=== PATIENT | female | born 1960 | race Caucasian/White ===

== ENCOUNTER → 2016-05-30 12:33 | Outpatient (CLI) | payer MEDICARE ==
[2013-04-12 15:16] VITALS: BMI 32.2
[~2016-05-30 12:33] MED LIST: AMITRIPTYLINE150 MG PO; CALTRATE-600600 MG PO; CARAFATE1 G PO; FLEXERIL10 MG; HCTZ25 MG PO; K-DUR20 MEQ PO; KLONOPIN0.5 MG PO; NEXIUM40 MG PO; NORCO 5/325 TAB1 TA1 PO; PRILOSEC20 MG PO; SINGULAIR10 MG; SLOW-MAG 64 MG64 MG PO; XOPENEX HFA15 GM INH; ZOFRAN ODT4 MG/UDTAB OR; ZOLOFT100 MG PO
[2016-05-31 11:18] LABS: IMMUNOGLOBULIN E 9 IU/mL (0-100)
== END | disposition home or self-care (01) ==
LOC: D.RT 12:33
PROVIDERS: Internal Medicine Pulmonary Disease
DX: J45.909 Unspecified asthma, uncomplicated (principal)

== ENCOUNTER → 2016-12-16 16:22 | Outpatient (CLI) | payer MEDICARE ==
[2013-04-12 15:16] VITALS: BMI 32.2
== END | disposition home or self-care (01) ==
LOC: D.CT 16:22
DX: S42.202A Unspecified fracture of upper end of left humerus, initial encounter for closed fracture (principal)

== ENCOUNTER 2017-03-10 08:07 | Outpatient (CLI) | payer MEDICARE ==
--- NOTE | ~2017-03-10 | HEMODYNAMI ---
PATIENT:CAMILA GAMBOA MEDICAL RECORD: [id number] : 56 LOCATION:[facility] ADMISSION DATE: 03/10/17 Generatedon:03/10/201710:46 Patient name: CAMILA GAMBOA Patient #: [id number] SSN: [id number] : 1960 Date of study: 03/10/2017 Page: Of Hemodynamic Procedure Report Patient Data Patient Demographics Procedure consent was obtained First Name: CAMILA Gender: Female Last Name: COOPER : 1960 [facility] Initial: N Age: 56 year(s) Patient #: [id number] Race: SSN: [id number] Additional ID: [id number] Contact details Address: [place] [address] State: [place] City: [place] Zip code: [address] Admission Admission Data Admission Date: 03/10/2017 Admission Time: 8:07 Arrival Date: 03/10/2017 Arrival Time: 10:30 Admit Source: Other Insurance Payor: Medicare Lab Results Lab Result Date: 03/10/2017 Lab Result Time: 0:00 Biochemistry Name Units Result Min Max BUN mg/dl 17 --(---*)-- 7 18 Creatinine mg/dl 0.9 --(-*--)-- 0.6 1.3 CBC Name Units Result Min Max Hemoglobin g/dl 14.2 --(*---)-- 13.5 17.5 Procedure Procedure Types Cath Procedure Diagnostic Procedure LHC LH w/Coronaries PCI Procedure Coronary Stent Initial Miscellaneous Procedures Moderate Sedation up to 30 minutes Procedure Description Procedure Date Procedure Date: 03/10/2017 Procedure Start Time: 10:26 Procedure End Time: 10:41 Procedure Staff Name Function Jude Ma MD Performing Physician Yaz Ray RT Scrub Benita Alonso RT Monitor Valencia Pires RN Nurse Alejandra Fowler RN Nurse Procedure Data Cath Procedure Fluoroscopy Diagnostic fluoroscopy Total fluoroscopy Time: 2.1 time: 2.1 min min Diagnostic fluoroscopy Total fluoroscopy dose: 372 dose: 372 mGy mGy Contrast Material Contrast Material Type Amount (ml) Isovue 300 60 Entry Location Entry Primary Successful Side Size Upsize Upsize Entry Closure Jewell ccessful Closure Location (Fr) 1 (Fr) 2 (Fr) Remarks Device Remarks Radial Right 6 Fr Mechanical artery Short Compression Estimated blood loss: 5 ml Diagnostic catheters Device Type Used For End Catheter Placement Diagnostic Terumo 5Fr Multi-vessel Kent 110cm catheter Angiography Procedure Complications No complications Procedure Medications Medication Administration Route Dosage Oxygen NC 2 l/min Lidocaine 2% added to field 20 Heparin Flush Bag added to field 2 bags (1000units/500ml NS) 0.9% NaCl I.V. 100 ml/hr Versed I.V. 1 mg Fentanyl I.V. 50 mcg Versed I.V. 1 mg Fentanyl I.V. 50 mcg Radial Cocktail I.A. 1 syringe (Verapomil 2mg/Nitro 400mcg/Heparin 1500units) Heparin Bolus I.V. 4000 units Versed I.V. 1 mg Fentanyl I.V. 50 mcg Hemodynamics Rest HGB: 14.2 (g/dl) Heart Rate: 78 (bpm) Snapshots Pre Cath Intra NCS Post Cath Vital Signs Time Heart Resp SPO2 etCO2 NIBP Rhythm Pain Sedation Rate (ipm) (%) (mmHg) (mmHg) Status Level (bpm) 10:04:12 76 20 97 40.5 139/65(82) NSR 0 (11) 10(A) , No pain 10:08:24 76 18 94 7.5 126/60(83) NSR 0 (11) 10(A) , No pain 10:12:40 78 16 96 11.2 124/61(82) NSR 0 (11) 10(A) , No pain 10:16:50 79 16 96 15.7 120/59(79) NSR 0 (11) 10(A) , No pain 10:21:00 78 17 97 19.5 123/59(81) NSR 0 (11) 10(A) , No pain 10:25:12 79 20 97 25.5 125/62(80) NSR 0 (11) 9(A) , No pain 10:29:26 80 15 97 26.3 117/64(85) NSR 0 (11) 9(A) , No pain 10:33:38 84 18 95 27 112/52(76) NSR 0 (11) 9(A) , No pain 10:37:50 84 22 96 27 124/61(88) NSR 0 (11) 10(A) , No pain Medications Time Medication Route Dose Verified Delivered Reason Note s Effectiveness by by 10:06:48 Oxygen NC 2 l/min Jude Buffie used for Francesca Pires RN procedure 10:07:10 Lidocaine 2% added 20ml Jude Roque for local to vial Francesca Ma MD anesthetic field 10:07:18 Heparin Flush added 2 bags Jude Roque used for Bag to Francesca Ma MD procedure (1000units/500ml field NS) 10:07:33 0.9% NaCl I.V. 100 Jude Buffie Per physician ml/hr Francesca Pires RN 10:23:48 Versed I.V. 1 mg Jude Sandersonie for sedation Francesca Pires RN 10:23:54 Fentanyl I.V. 50 mcg Jude [place] for sedation Francesca Pires RN 10:25:58 Versed I.V. 1 mg Jude Buffie for sedation Francesca Pires RN 10:26:01 Fentanyl I.V. 50 mcg Jude Sandersonie for sedation Francesca Pires RN 10:31:14 Radial Cocktail I.A. 1 Jude Roque for (Verapomil syringe Francesca Ma MD vasodilation 2mg/Nitro 400mcg/Heparin 1500units) 10:36:38 Heparin Bolus I.V. 4000 Judetyree Sandersonie for veri fied units Francesca Pires RN anticoagulation with dr ma 10:37:54 Versed I.V. 1 mg Jude Sandersonie for sedation Francesca Pires RN 10:37:58 Fentanyl I.V. 50 mcg Jude Buffie for sedation Francesca Pires RN Procedure Log Time Note 9:07:50 Informed consent obtained and on chart 9:07:55 Diagnostic Cath Status : Elective 9:13:41 Benita Alonso RT(R) sent for patient. Start room use. 9:13:42 Time tracking: Regular hours 9:13:46 Plan of Care:Hemodynamics will remain stable., Cardiac rhythm will remain stable., Comfort level will be maintained., Respiratory function will remain adequate., Patient/ family verbilizes understanding of procedure., Procedure tolerated without complication., Recovers from procedure without complications.. 9:18:27 Admit Source: Other 9:18:52 Arrival Date: 03/10/2017 10:30:00 AM 9:19:21 Insurance Payor : Medicare 9:40:28 Lab Result : Creatinine 0.9 mg/dl 9:40:28 Lab Result : BUN 17 mg/dl 9:40:28 Lab Result : Hemoglobin 14.2 g/dl 9:49:08 Patient received from Pre/Post Procedure Room to CCL 2 Alert and oriented. Tansferred to table in Supine position. 9:49:09 Warm blankets applied, and kristel hugger turned on for patient comfort. 9:49:09 Correct patient and procedure confirmed by team. 9:49:10 ECG and BP/O2 sat monitors applied to patient. 10:03:08 Vital chart was started 10:03:09 Baseline sample Acquired. 10:03:13 Rhythm: sinus rhythm 10:03:14 Full Disclosure recording started 10:03:26 H&P Date Dictated: 03/01/2017 Within 30 days and on chart., H&P Addendum completed by physician on day of procedure. (MUST COMPLETE FOR ALL OUTPATIENTS). 10:03:27 Pre-procedure instructions explained to patient. 10:03:28 Pre-op teaching completed and patient verbalized understanding. 10:03:29 Family in waiting room. 10:03:30 Patient NPO since Midnight. 10:03:37 Is the patient allergic to Iodine/contrast media? No. 10:03:39 Was the patient premedicated? No 10:03:40 Is patient on blood thinner?Yes 10:03:43 ACC The patient was administered the following blood thiners within the last 24 hours: ACCPlavix 10:03:56 Patient diabetic? No. 10:03:59 Previous problem with sedation/anesthesia? No ? 10:04:04 Snore? No 10:04:05 Sleep apnea? No 10:04:06 Deviated septum? No 10:04:08 Opens mouth fully? Yes 10:04:08 Sticks out tongue? Yes 10:04:10 Airway obstruction? No ? 10:04:13 Dentures? No ? 10:04:17 Pre procedure: right dorsailis pedis pulse 2+ Normal; easily identifiable; not easily obliterated 10:04:20 Pre procedure: left dorsailis pedis pulse 2+ Normal; easily identifiable; not easily obliterated 10:04:22 Patient pain scale 0/10 ?. 10:04:28 IV patent on arrival in left forearm with 0.9% NaCl at [facility]. 10:04:32 Lab results completed and on chart. 10:04:36 Right Radial & Right Groin area was prepped with chlora-prep and draped in sterile fashion 10:04:37 Alarms reviewed by R. N. 10:04:37 Sharps counted by scrub and verified by R.N. 10:06:48 Oxygen 2 l/min NC was administered by Valencia Pires RN; used for procedure; 10:07:10 Lidocaine 2% 20ml vial added to field was administered by Jude Ma MD; for local anesthetic; 10:07:18 Heparin Flush Bag (1000units/500ml NS) 2 bags added to field was administered by Jude Ma MD; used for procedure; 10:07:33 0.9% NaCl 100 ml/hr I.V. was administered by Valencia Pires RN; Per physician; 10:21:50 Physician arrived 10:21:51 --------ALL STOP TIME OUT------ 10:21:52 Final Timeout: patient, procedure, and site verified with staff and physician. All members of the team are in agreement. 10:21:56 Right Radial & Right Groin site verified by team. 10:21:59 Physical assessment completed. ASA score P 2 - A patient with mild systemic disease as per Jude Ma MD. 10:22:03 Sedation plan: IV Moderate Sedation Versed, Fentanyl 10:23:05 Use device set Radial Dx 10:23:06 Acist Syringe opened to sterile field. 10:23:07 Medline Cath Pack opened to sterile field. 10:23:07 Bag Decanter opened to sterile field. 10:23:08 Terumo 6Fr Slender Glidesheath opened to sterile field. 10:23:08 St Margarito 260cm J .035 wire opened to sterile field. 10:23:08 Acist Hand Control opened to sterile field. 10:23:09 Acist Manifold opened to sterile field. 10:23:09 Tegaderm 4 x 4 opened to sterile field. 10:23:10 MBrace Wrist Support opened to sterile field. 10:23:48 Versed 1 mg I.V. was administered by Valencia Pires RN; for sedation; 10::54 Fentanyl 50 mcg I.V. was administered by Valencia Pires RN; for sedation; 10:25:58 Versed 1 mg I.V. was administered by Vaelncia Pires RN; for sedation; 10:26:01 Fentanyl 50 mcg I.V. was administered by Valencia Pires RN; for sedation; 10:26:11 Procedure started. 10:26:17 Local anesthetic to right radial artery with Lidocaine 2% by Jude Ma MD.INITIAL ACCESS ONLY 10:30:02 A 6 Fr Short sheath was inserted into the Right Radial artery 10:30:50 A Diagnostic Swidjito 5Fr Kent 110cm catheter was advanced over the wire and used for Multi-vessel Angiography. 10:31:14 Radial Cocktail (Verapomil 2mg/Nitro 400mcg/Heparin 1500units) 1 syringe I.A. was administered by Jude Ma MD; for vasodilation; 10::26 LV hemodynamics recorded. 10:31:30 LV gram done using ROSS 10:31:33 Injector settings: Ml/sec: 5, Volume: 15, 10:31:38 EF : 50 % 10:31:56 RCA angiography performed. 10:32:07 Injector settings: Ml/sec: 3, Volume: 6, 10:32:23 Catheter removed. 10:32:49 Cordis 6FR XBLAD 3.5 guide catheter opened to sterile field. 10:33:58 6 Fr xblad 3.5 guide catheter was inserted over the wire 10:34:05 LCA angiography performed. 10:34:08 Injector settings: Ml/sec: 3, Volume: 6, 10:34:30 Proceeding to intervention. 10:34:45 Merit BasixCompak Inflation Kit opened to sterile field. 10:35:43 Bustamante Whisper J 300cm 0.014 guide wire opened to sterile field. 10:36:38 Heparin Bolus 4000 units I.V. was administered by Valencia Pires RN; for anticoagulation; verified with dr ma 10:37:01 whisper wire advanced. 10:37:54 Versed 1 mg I.V. was administered by Valencia Pires RN; for sedation; 10:37:58 Fentanyl 50 mcg I.V. was administered by Valencia Pires RN; for sedation; 10:38:19 Wire advanced across lesion. 10:38:43 Inflation Number: 1 A Medtronic Integrity 2.75 X 12 stent was prepped and advanced across the Mid LAD. The stent was deployed at 15 YI for 0:10 (min:sec). 10:39:37 Stent catheter was removed intact over wire. 10:39:38 Wire removed. 10:39:38 Guide catheter removed. 10:39:46 Terumo TR Band Standard opened to sterile field. 10:40:05 Sheath removed intact; hemostasis achieved with Mechanical Compression to the Right Radial artery. 10:40:10 Procedure ended.(Physican Out) 10:40:18 Fluoroscopy time 02.10 minutes. 10:40:22 Fluoroscopy dose: 372 mGy 10:40:22 Flurop Dose total: 372 10:40:26 Contrast amount:Isovue 300 60ml. 10:40:28 Sharps counted by scrub and verified by R.N. 10:40:30 TR band inflated with 10cc of air. 10:40:32 Insertion/operative site no bleeding no hematoma. 10:40:36 Post right radial artery:stable 10:40:38 Post Procedure Pulses reassessed and unchanged 10:40:41 Post procedure rhythm: unchanged. 10:40:44 Estimated blood loss: 5 ml 10:40:46 Post procedure instruction explained to patient.Patient verbalizes understanding. 10:40:46 Patient needs reinforcement of post procedure teaching. 10:40:57 Procedure type changed to Cath procedure, Diagnostic procedure, LHC, LHC w/Coronaries, PCI procedure, Coronary Stent Initial, Miscellaneous Procedures, Moderate Sedation up to 30 minutes 10:40:59 Procedure and supply charges have been captured, reviewed, submitted and are correct. 10:41:04 Procedure Complication : No complications 10:41:08 Vital chart was stopped 10:41:08 See physician's report for complete and final results. 10:41:10 Report given to Pre/Post Procedure Room. 10:41:13 Patient transfered to Pre/Post Procedure Room with Stretcher. 10:41:15 Procedure ended. 10:41:15 Full Disclosure recording stopped 10:41:24 ACC-PCI Only Patient was given prescriptions, or instructed by Jude Ma MD to start/continue the following medications upon discharge: Plavix 10:41:26 End room use (Document Last) Intervention Summary Intervention Notes Time ActionType Lesion and Equipment Action# Pressure Duration Attributes Used 10:38:43 Place stent Mid LAD Medtronic 1 15 00:10 Integrity 2.75 X 12 stent Device Usage Item Name Manufacture Quantity Catalog Hospital Part Current Minimal Lot# / Number Charge Number Stock Stock Serial# Code Acist Acist 1 58885 [id number] 541255 335397 20 Syringe Medical Systems Inc Medline Cardinal 1 [id number] 085800 29547 527614 5 Cath Pack Health Bag Microtek 1 2001S 365741 58592 854129 5 Decanter Medical Inc. Terumo 6Fr Terumo 1 [id number] 493853 779393 155820 [address] Margarito 1 530948 366514 380662 700622 30 260cm J .035 wire Acist Hand Acist 1 22245 769861 157411 890795 5 Control Medical Systems Inc Acist Acist 1 59979 773974 580999 723994 5 Manifold Medical Systems Inc Tegaderm 4 3M 1 1626W 898642 204330 207746 5 x 4 MBrace Advanced 1 140-0250-00 838615 81427 366974 5 Wrist Vascular Support Dynamics Diagnostic Terumo 1 51-2180 829015 718697 581535 5 Terumo 5Fr Kent 110cm catheter Cordis 6FR Cardinal 1 [id number] 469800 733294 982265 10 XBLAD 3.5 Health guide catheter Merit Merit 1 [id number] 450608 413621 492633 15 BasixCompak Medical Inflation Kit Bustamante Bustamante 1 [id number] 179641 830332 941327 5 Whisper J Vascular 300cm 0.014 guide wire Medtronic Medtronic 1 [id number] 149901 705038 7 [id number] Integrity 2.75 X 12 stent Terumo TR Terumo 1 [id number] 329268 656238 537173 40 Band Standard Signature Audit [place] Stage Time Signature Unsigned Intra-Procedure 03/10/2017 Benita Alonso 10:46:34 AM RT(R) Signatures Monitor : Benita Alonso RT Signature : Date : Time : [address] [place] [address]
[2017-03-10] MEDS ORDERED: VENTOLIN HFA18 GM INH (08:41)
[2017-03-10] MEDS ORDERED: FLUTICASONE PRO16 GM NASAL (08:42)
[2017-03-10] MEDS ORDERED: ROBITUSSIN DM 110 ML PO (08:43)
[2017-03-10] MEDS ORDERED: TESSALON PERLE100 MG PO (08:43)
[2017-03-10] MEDS ORDERED: COZAAR25 MG PO (08:44)
[2017-03-10] MEDS ORDERED: CRANBERRY 400 M1 TA1 PO (08:46)
[2017-03-10] MEDS ORDERED: TOPAMAX50 MG PO (08:46)
[2017-03-10] MEDS ORDERED: SINGULAIR10 MG PO (08:47)
[2017-03-10] MEDS ORDERED: MYCOSTATIN CREA15 GM TOPICAL (08:48)
[2017-03-10] MEDS ORDERED: NORCO 7.5/325 T1 TA1 PO (08:49)
[2017-03-10] MEDS ORDERED: TYLENOL W/CODEI1 TAB PO (08:49)
[2017-03-10] MEDS ORDERED: ARNUITY ELLIP200 MCG INH (08:50)
[2017-03-10] MEDS ORDERED: BREO ELLIPTA 11 EACH INH (08:51)
[2017-03-10] MEDS ORDERED: PLAVIX75 MG PO (08:51)
[2017-03-10 08:57] VITALS: BP 149/53; BMI 33.2
[2017-03-10 09:10] LABS: BASOPHILS 0.4 % (0-2); EOSINOPHILS 1.7 % (0-7); HEMOGLOBIN 14.2 g/dL (12-16); IMMATURE GRANULOCYTES 0.4 % (0-5); LYMPHOCYTES 19.6 % (15-50); MCH 29.2 pg (26.0-34.0); MCV 88.5 fL (80.0-100.0); MEAN PLATELET VOLUME 11.4 fL (7.4-10.4); MONOCYTES 7.4 % (2-11); NEUTROPHILS 70.5 % (40-80); PLATELET COUNT 189 10x3/uL (130-400); RBC 4.86 10x6/uL (4.00-5.40); RDW 13.5 % (11.5-14.5); WBC 5.4 10x3/uL (4.8-10.8)
[2017-03-10 09:19] LABS: ANION GAP 12.7 mmol/L (8-16); CALCIUM 9.1 mg/dL (8.5-10.1); CARBON DIOXIDE 24.6 mmol/L (21.0-32.0); CREATININE - SERUM 0.9 mg/dL (0.6-1.3); POTASSIUM - SERUM 3.3 mmol/L (3.5-5.1)
[2017-03-10] MEDS ORDERED: BAYER CHEWABLE81 MG PO (11:01)
--- NOTE | 2017-03-10 11:25 | NUR ---
1100 SITTING UP TALKING WITH FRIEND AT BEDSIDE. ALL VITALS WNL. R WRIST TR BAND C/D/I W NO HEMATOMA OR BLEEDING. NO C/O CHEST PAIN. WILL CONTINUE TO MONITOR CLOSELY.
--- NOTE | 2017-03-10 12:35 | NUR ---
1130 SITTING UP, AWAKE AND TALKING TO FRIEND AT BEDSIDE. ALL VITALS WNL. R WRIST TR BAND C/D/I W NO HEMATOMA OR BLEEDING.
--- NOTE | 2017-03-10 13:09 | NUR ---
1230 R WRIST TR BAND C/D/I W NO HEMATOMA OR BLEEDING. RESTING WITH EYES CLOSED. ALL VITALS WNL.
--- NOTE | 2017-03-10 14:07 | NUR ---
1330 R WRIST TR BAND REMAINS C/D/I W NO HEMATOMA OR BLEEDING. ALL VITALS WNL. DENIES NEEDS AT THIS TIME. FRIEND AT BEDSIDE. 1408 2CC AIR REMOVED FROM R WRIST, WILL MONITOR CLOSELY FOR BLEEDING.
--- NOTE | 2017-03-10 14:32 | NUR ---
2CC AIR REMOVED FROM R WRIST TR BAND. PIV REMOVED FROM LEFT HAND WITH PAPER TAPE APPLIED. UP TO BEDSIDE TO DRESS WITH ASSIST FROM FRIEND.
--- NOTE | 2017-03-10 14:45 | NUR ---
TR BAND WEANED, 2X2 AND PAPER TAPE APPLIED. BRACE REAPPLIED TO R WRIST. D/C INSTRUCTIONS DISCUSSED WITH PATIENT AND FRIEND AT BEDSIDE. WHEELED OUT VIA WHEELCHAIR BY CATH TEAM.
--- NOTE | 2017-03-24 14:14 | OP ---
PATIENT NAME: CAMILA GAMBOA MEDICAL RECORD: [id number] :56 LOCATION:D.CAT ADMISSION DATE: SURGEON: SUSAN SAMUEL MD DATE OF OPERATION: 03/10/2017 PROCEDURES: 1. PTCA and stent of LAD. 2. Left heart catheterization. 3. Selective coronary angiography. 4. Left ventriculogram. INDICATION: Angina and coronary artery disease. PROCEDURE IN DETAIL: After informed consent was obtained and after a detailed explanation of the risks, benefits as well as alternative therapies, the patient elected to proceed with angiogram and angioplasty. The right radial area is prepped and draped in normal sterile fashion. The right radial artery was cannulated via modified Seldinger technique with placement of 6-Malay sheath. All catheters exchanged through this sheath. FINDINGS: Left ventriculogram was performed in the standard 30-degree ROSS view, reveals good cardiac wall motion throughout all segments. Overall ejection fraction estimated 60%. SELECTIVE CORONARY ANGIOGRAPHY: 1. Left main showed no significant angiographic disease. 2. Left anterior descending has 80% stenosis in the proximal vessel. 3. Left circumflex shows moderate irregularities, but no flow-limiting stenosis. 4. Right coronary has moderate irregularities, but no flow-limiting stenosis. PTCA AND STENT OF THE LEFT ANTERIOR DESCENDING: The stent used is a 2.75 x 12 mm Integrity. Result was 0% residual stenosis. OVERALL IMPRESSION: Successful PTCA and stent of the left anterior descending going from 80% initial stenosis to 0% residual stenosis. TRANSINT:[id number] Voice Confirmation ID: [id number] DOCUMENT ID: [id number] SUSAN SAMUEL MD at 1414 CC: [id number] DICTATION DATE: 03/10/17 1043 [employer] FIELD OPERATOR: 03/10/17 1059 DEP CLI 03/10/17 [place] [id number]
== END 2017-03-10 14:46 | disposition home or self-care (01) ==
LOC: D.CATH 08:07
PROVIDERS: Internal Medicine Interventional Cardiology
DX: I25.119 Atherosclerotic heart disease of native coronary artery with unspecified angina pectoris (principal); R55 Syncope and collapse; I10 Essential (primary) hypertension; Z82.49 Family history of ischemic heart disease and other diseases of the circulatory system; Z01.812 Encounter for preprocedural laboratory examination

== ENCOUNTER → 2017-07-06 09:41 | Outpatient (CLI) | payer MEDICARE ==
[~2017-07-06 09:41] MED LIST changes: +ALENDRONATE SOD70 MG PO; -AMITRIPTYLINE150 MG PO; +ARNUITY ELLIP200 MCG INH; +BAYER CHEWABLE81 MG PO; +BENZONATATE200 MG PO; +BREO ELLIPTA 11 EACH INH; +CALTRATE 600 M600 M1 PO; -CALTRATE-600600 MG PO; +COZAAR25 MG PO; +CRANBERRY 400 M1 TA1 PO; +CYCLOBENZAPRINE10 MG PO; +ELAVIL75 MG PO; -FLEXERIL10 MG; +FLUTICASONE PRO16 GM NASAL; +LIPITOR10 MG PO; +MYCOSTATIN CREA15 GM TOPICAL; +NORCO 7.5/325 T1 TA1 PO; +OMEPRAZOLE20 M1 PO; +PLAVIX75 MG PO; +ROBITUSSIN DM 110 ML PO; +SINGULAIR10 MG PO; +SOMA350 MG PO; +TOPAMAX50 MG PO; +TYLENOL W/CODEI1 TAB PO; +VENTOLIN HFA18 GM INH; +VITAMIN D31000 UNIT PO; +ZANTAC150 MG PO
== END | disposition home or self-care (01) ==
LOC: D.MRI 09:41
DX: M54.12 Radiculopathy, cervical region (principal)

== ENCOUNTER → 2017-09-04 10:51 | Outpatient (CLI) | payer MEDICARE | END | disposition home or self-care (01) | LOC: D.LAB 08-30 13:00 → D.RT 08-30 13:00 → D.RAD 08-30 13:00 → D.LAB 08-30 14:00 → D.RAD 08-30 14:30 → D.LAB 10:45 | DX: J45.909 Unspecified asthma, uncomplicated (principal) ==

== ENCOUNTER 2017-09-12 06:27 | Day surgery (SDC) | payer MEDICARE ==
[2017-09-11 11:25] LABS: HEMATOCRIT 35.9 % (36.0-48.0); HEMOGLOBIN 11.7 g/dL (12-16); MCH 27.7 pg (26.0-34.0); MCHC 32.6 g/dL (31.0-37.0); MCV 85.1 fL (80.0-100.0); MEAN PLATELET VOLUME 10.7 fL (7.4-10.4); RBC 4.22 10x6/uL (4.00-5.40); RDW 14.5 % (11.5-14.5); WBC 5.4 10x3/uL (4.8-10.8)
[2017-09-11 11:27] LABS: CALC OSMOLALITY 287 mosm/kg (275-300); CALCIUM 8.8 mg/dL (8.5-10.1); CARBON DIOXIDE 22.8 mmol/L (21.0-32.0); CHLORIDE - SERUM 107 mmol/L (98-107); CREATININE - SERUM 0.8 mg/dL (0.6-1.3); GLUCOSE 124 mg/dL (74-106); POTASSIUM - SERUM 3.8 mmol/L (3.5-5.1); SODIUM 142 mmol/L (136-145); UREA NITROGEN 24 mg/dL (7-18); eGFR NON AFRICAN AMERICAN 78 mL/min (90-120)
[~2017-09-12] VITALS: Ht 152.4 cm; Wt 82.0 kg
[2017-09-12] VITALS (22 sets, daily range): BP systolic 102–151; BP diastolic 40–65; Ht 152.4 cm; Wt 82.0 kg
--- NOTE | ~2017-09-12 | OP ---
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 SURGEON: My Quesada MD PROCEDURE: Anterior cervical discectomy and fusion at C5-C6 and C6-C7, removal of osteophytes, Zavation anterior cervical plate and screws separately, 7 mm cage with 6 degrees lordosis at C5-C6 and C6-C7, Viacell bone stem cell allograft, and removal of osteophytes. DESCRIPTION OF TECHNIQUE: After induction of general endotracheal anesthesia, the patient was positioned supine on the operating table. Neck was prepped and draped in usual sterile fashion. Fluoroscopic x-ray and freer localized the C5-C6 interspace. A transverse skin incision was carried out from the midline to the sternocleidomastoid muscle. The platysma was divided with Bovie cautery. Then, using blunt and sharp dissection with Metzenbaum scissors, I proceeded in avascular plane medial to the carotid sheath. The longus colli muscle muscles were elevated from bodies of C5 and C6 and C7. Self-retaining retractors were placed deep to the longus colli muscles. Lynco distracting pins were placed to the bodies of C5, C6 and C7. Disc spaces were incised. Disc material was removed with pituitary rongeurs and curettes. Posteriorly, a Midas Balaji drill and microscope was used to remove osteophytes with a Midas-Balaji drill. The posterior longitudinal ligament was removed with Cloward rongeurs. Following this, the dura was decompressed well. At each interspace, a 7 mm cage was placed in the disc space. Prior to this, it was filled with Viacell bone stem cell allograft. Next, a separate anterior cervical plate and screws from [facility] was used to span the C5-C6 and the C6-C7 interspaces. Screws were threaded through the holes in the plate and then locking cams were tightened down over the screw heads. Good position of the hardware was confirmed with fluoroscopic x-ray. Meticulous hemostasis was maintained throughout the wound. Wound was irrigated with copious amounts of Ancef irrigant solution. The platysma and subdermal layer closed with interrupted 3-0 Vicryl suture. The skin was reapproximated with Steri-Strips and benzoin. A sterile dressing was applied to the wound. The patient was awakened in good condition and taken to recovery. All counts were reported as correct. Estimated blood loss was minimal. TRANSINT:[id number] Voice Confirmation ID: [id number] DOCUMENT ID: [id number] MY QUESADA MD at 1832 CC: [id number] DICTATION DATE: 09/26/17 1544 MOLD MOVER: 09/26/17 1609 [facility] 09/13/17 [place] [id number] [place] [address]
[2017-09-13] VITALS (10 sets, daily range): BP systolic 100–145; BP diastolic 41–66
== END 2017-09-13 12:30 | disposition home or self-care (01) ==
LOC: D.CVICU 06:27 → D.OPS 06:27 → D.PAN 07:30 → D.CVICU 11:01 → D.OPS 09-13 12:30
PROVIDERS: Anesthesiology
DX: M53.80 Other specified dorsopathies, site unspecified (principal); M77.9 Enthesopathy, unspecified; M54.12 Radiculopathy, cervical region; J45.909 Unspecified asthma, uncomplicated; I25.10 Atherosclerotic heart disease of native coronary artery without angina pectoris; I10 Essential (primary) hypertension; K21.9 Gastro-esophageal reflux disease without esophagitis; E78.5 Hyperlipidemia, unspecified; Z01.812 Encounter for preprocedural laboratory examination

== ENCOUNTER → 2018-05-09 12:49 | Outpatient (CLI) | payer MEDICARE ==
[2017-09-12 11:04] VITALS: BMI 37.0
== END | disposition home or self-care (01) ==
LOC: D.RAD 12:49
DX: R47.02 Dysphasia (principal)

== ENCOUNTER → 2019-05-03 08:12 | Outpatient (CLI) | payer MEDICARE ==
[2017-09-12 11:04] VITALS: BMI 37.0
--- NOTE | ~2019-05-03 | ST ---
PATIENT:CAMILA GAMBOA MEDICAL RECORD: [id number] SEX: F LOCATION:[facility] ORDER #: ADMISSION DATE: 05/03/19 AGE OF PATIENT: 59 REFERRING PHYSICIAN: INTERPRETING PHYSICIAN: SUSAN SAMUEL MD DATE OF SERVICE: 05/03/2019 INDICATION: Angina, coronary artery disease, shortness of breath, hypertension. TECHNIQUE: She was exercised on standard Geraldo protocol for 7 minutes and 35 seconds achieving 85% max target heart rate response with 28 mCi of sestamibi injected at peak stress, 9 mCi used previously for rest images. FINDINGS: Gated SPECT reveals preserved ejection fraction at 71% with good wall motion and thickening and brightening throughout all segments. SPECT imaging Cardiolite was used as myocardial fusion agent. There is homogeneous uptake throughout all segments at rest and stress with no evidence of inducible ischemia or previous infarction. OVERALL IMPRESSION: 1. This is a normal nuclear stress test with no evidence of inducible ischemia or previous infarction. 2. Gated SPECT reveals a preserved ejection fraction at 71%. In this patient with ongoing symptomatology, the current scan does not suggest the presence of hemodynamically significant coronary artery disease. Evaluate noncardiac etiology of chest pain. TRANSINT:[id number] Voice Confirmation ID: [id number] DOCUMENT ID: [id number] SUSAN SAMUEL MD CC: ADOLFO ARCINIEGA MD [id number] DICTATION DATE: 05/03/19 1528 [employer] DRIVER: 05/04/19 0836 DEP CLI 05/03/19 [facility] [address] [place] [address]
--- NOTE | ~2019-05-03 | EC ---
PATIENT:CAMILA GAMBOA DATE OF SERVICE: 05/03/19 SEX: F MEDICAL RECORD: [id number] DATE OF : 56 LOCATION:[facility] AGE OF PATIENT: 59 ADMISSION DATE: 05/03/19 REFERRING PHYSICIAN: INTERPRETING PHYSICIAN: SUSAN MA MD ECHOCARDIOGRAM REPORT ECHO CHARGES 4 ECHO COMPLETE Date: 05/03/19 CLINICAL DIAGNOSIS: ANGINA/KRAFT/SOB H/O CAD/HTN ECHOCARDIOGRAPHIC MEASUREMENTS (adult normal given) AC root (d.<3.7cm) 2.6 cm LV Septum d (<1.2 cm> 1.3 cm Valve Excursion 1.7 cm LV Septum (systole) 1.9 cm Left Atria (s.<4.0cm> 3.6 cm LVPW d(<1.2cm) 1.2 cm RV (d.<2.3cm) 2.4 cm LVPW (sytole) 1.7 cm LV diastole(<5.6CM) 4.6 cm MV E-F(>70mm/sec) cm LV systole 2.7 cm LVOT Diameter 1.9 cm MV exc.(>10mm) cm Est.ejection fraction (50-75%) % DOPPLER: LVIT cm/sec A 79.0 cm/sec E 56.0 cm/sec LA cm/sec RVSP 28.0 mmHg LVOT 85.0 cm/sec AOP1/2T m/s Asc. Ao 153 cm/sec RVOT 54.0 cm/sec RA cm/sec PA 96.0 cm/sec AV Gradient Peak 9.4 mmHg AV Mean 5.0 mmHg AV Area 1.5 cm MV Gradient Peak 3.5 mmHg MV Mean 1.4 mmHg MV Area cm COMMENTS: OP - HC Water Truck Driver: 1 [place] [employer] Officer: 1 Dr. Ma TAPE# PACS Pericardial Effusion N DATE OF SERVICE: ECHOCARDIOGRAM FINDINGS: 1. Left ventricular chamber size is within normal limits. Left ventricular systolic function is normal. Overall ejection fraction estimated at 55%. 2. Left atrium, right atrium, and right ventricle chamber sizes are within normal limits. 3. Valvular structures have normal structure and motion. ECHOCARDIOGRAM REPORT [id number] CAMILA GAMBOA N 4. Doppler interrogation reveals mild mitral regurgitation, no other valvular insufficiency or stenosis and pulmonary systolic pressure is normal estimated 28 mmHg. 5. No evidence of pericardial effusion or left ventricular thrombus. TRANSINT:[id number] Voice Confirmation ID: [id number] DOCUMENT ID: [id number] SUSAN MA MD CC: [id number] DICTATION DATE: 05/03/19 140 [employer]EDGE BOAT ENGINEER: 05/03/19 2218 [facility] [address] [place] [id number]
== END | disposition home or self-care (01) ==
LOC: D.HCCECHO 08:12
PROVIDERS: ATTEND Internal Medicine Interventional Cardiology
DX: I25.10 Atherosclerotic heart disease of native coronary artery without angina pectoris (principal)

== ENCOUNTER 2019-05-06 12:00 | Outpatient (CLI) | payer MEDICARE ==
[2017-09-12 11:04] VITALS: BMI 37.0
== END 2019-05-06 12:30 | disposition home or self-care (01) ==
LOC: D.MAMMO 12:00
PROVIDERS: ATTEND Family Medicine
DX: Z12.31 Encounter for screening mammogram for malignant neoplasm of breast (principal)